=== PATIENT | female | born 1975 | race Caucasian/White ===

== ENCOUNTER 2021-05-23 12:36 | Emergency (ER) | payer MEDICAID ==
[~2021-05-23] VITALS: Ht 157.5 cm; Wt 64.0 kg
[2021-05-23] MEDS ORDERED: KETOROLAC 30MG/ML VIAL IV STA (13:24)
[2021-05-23] MEDS ORDERED: MORPHINE SULFATE 4 MG/ML CPJ (NOT FOR IM USE) IV STA (13:24)
[2021-05-23] MEDS ORDERED: SODIUM CHLORIDE 0.9% 1,000 ML IV ONE (13:30)
[2021-05-23 14:30] LABS: BASOPHILS % 0.7 % (0.0-2.0); HEMATOCRIT. 28.4 % (36.0-48.0); HEMOGLOBIN. 8.3 g/dL (12.0-16.0); LYMPHOCYTES % 18.2 % (20.0-50.0); MEAN CORPUSCULAR HEMOGLOBIN 15.9 pg (28.0-32.0); MEAN CORPUSCULAR VOLUME 54.4 fL (81.0-99.0); MEAN PLATELET VOLUME 8.4 fl (7.4-10.4); MONOCYTES % 4.9 % (2.0-8.0); NEUTROPHILS % 76.2 % (40.0-76.0); PLATELET 443 x1000/uL (130-400); RED BLOOD CELL COUNT 5.23 mill/uL (4.2-5.4); RED CELL DISTRIBUTION WIDTH 18.9 % (11.6-14.6)
[2021-05-23 14:37] LABS: CHLORIDE 107 mEq/L (98-107)
[2021-05-23 14:39] LABS: PROTHROMBIN TIME 10.9 sec (9.6-11.0)
[2021-05-23 14:52] LABS: PLATELET ESTIMATE INCREASED
[2021-05-23] MEDS ORDERED: MORPHINE SULFATE 2 MG/ML CPJ (NOT FOR IM USE) IV ONE (15:45)
[2021-05-23 15:54] LABS: CLARITY URINE CLEAR (CLEAR); COLOR URINE YELLOW (YELLOW); KETONES URINE 1+ (NEGATIVE); LEUKOCYTE ESTERASE URINE 1+ (NEGATIVE); NITRITE URINE NEGATIVE (NEGATIVE); OCCULT BLOOD URINE 1+ (NEGATIVE); PROTEIN URINE NEGATIVE (NEGATIVE); SPECIFIC GRAVITY URINE 1.009 (1.005-1.030); UROBILINOGEN URINE 0.2 E.U./dL (0.2-1.0)
[2021-05-23] MEDS ORDERED: HYDR-4001 MT (20:27)
[2021-05-23] MEDS ORDERED: NAPR-1176 MT (20:27)
[2021-05-23] MEDS ORDERED: HYDROCODONE/ACETAMINOPHEN 5/325MG TABLET PO ONE (20:30)
[2021-05-23] MEDS ORDERED: IOHEXOL-300 100 ML BOTTLE ONE (21:24)
[2021-05-23 21:53] VITALS: BP 122/67
== END 2021-05-23 21:55 | disposition home or self-care (01) ==
LOC: ER 12:54
DX: D25.9 Leiomyoma of uterus, unspecified (principal); D64.9 Anemia, unspecified
CPT/HCPCS: 36415; 74177; 76830; 76856; 80053; 81003; 83605; 83690; 84484; 85025; 85610; 86850; 86900; 86901; 93976; 96361; 96374; 96375; 96376; 99285; J1885; J2270; J7030; Q9967